=== PATIENT | male | born 1960 | race African-American/Black ===

== ENCOUNTER 2017-05-20 14:56 | Inpatient (IN) | payer OTHER ==
--- NOTE | 2017-05-20 17:51 | HP ---
COWS - Scale Resting Pulse: 0= [place] 80 or Below Sweatin= Chills/Flushing Restless Observation: 1= Difficult to Sit Still Pupil Size: 0= Normal to Room Light Bone or Joint Aches: 2= Severe Diffuse Aches Runny Nose/ Eye Tearin= Runny Nose/Eyes GI Upset > 30mins: 2= Nausea/Diarrhea Tremor Observation: 2= Slight Tremor Visible Yawning Observation: 0= None Anxiety or Irritability: 2=Irritable/Anxious Goose Flesh Skin: 3=Piloerection COWS Score: 15 Admission [facility] Chief Complaint: withdrawal sx Allergies/Adverse Reactions: Allergies Allergy/AdvReac Type Severity Reaction Status Date / Time No Known Allergies Allergy Verified 05/20/17 17:52 History of Present Illness: 56 years old female with long history of opioid cocaine dependence, has "liver disease" with ascites, treated at [facility] 05/[facility]/17 to 05/20/17 discharged with lasix 40 mg + spironolactone 25 mg + zpak, + prednison 40 mg x 5 days, has copd hepatitis c and positive ppd is admitted to detox Exam Limitations: No Limitations - Ebola screening Have you traveled outside of the country in the last 21 days: No Have you had contact with anyone from an Ebola affected area: No Have you been sick,other than usual withdrawal symptoms: No Do you have a fever: No - Review of Systems Constitutional: Loss of Appetite, Changes in sleep, Unintentional Wgt. Loss, Unexplained wgt Loss, Other (refuses ensure) EENT: reports: Blurred Vision (eye glasses), Dental Problems (no teeth "they took them out") Respiratory: reports: SOB with Exertion, Productive cough (yellowish) Cardiac: reports: No Symptoms Reported GI: reports: Nausea, Poor Appetite, Poor Fluid Intake, Abdominal cramping : reports: No Symptoms Reported Musculoskeletal: reports: Back Pain, Joint Pain, Muscle Pain, Neck Pain Integumentary: reports: Change in Color (both inner elbows) Neuro: reports: Tremors Endocrine: reports: No Symptoms Reported Hematology: reports: No Symptoms Reported Psychiatric: reports: Judgement Intact, Mood/Affect Appropiate, Orientated x3 Other Systems: Reviewed and Negative Patient History - Patient Medical History Hx Anemia: No Hx Asthma: Yes Hx Chronic Obstructive Pulmonary Disease (COPD): Yes Hx Cancer: No Hx Cardiac Disorders: No Hx Congestive Heart Failure: No Hx Hypertension: No Hx Hypercholesterolemia: No Hx Pacemaker: No HX Cerebrovascular Accident: No Hx Seizures: No Hx Dementia: No Hx Diabetes: No Hx Gastrointestinal Disorders: No Hx Liver Disease: Yes Hx Genitourinary Disorders: No Hx Sexually Transmitted Disorders: No Hx Renal Disease (ESRD): No Hx Thyroid Disease: No Hx Human Immunodeficiency Virus (HIV): No Hx Hepatitis C: Yes Hx Depression: No Hx Suicide Attempt: No Hx Bipolar Disorder: No Hx Schizophrenia: No - Patient Surgical History Past Surgical History: Yes Hx Neurologic Surgery: No Hx Cataract Extraction: No Hx Cardiac Surgery: No Hx Lung Surgery: No Hx Breast Surgery: No Hx Breast Biopsy: No Hx Abdominal Surgery: No Hx Appendectomy: Yes (12 years old) Hx Cholecystectomy: No Hx Genitourinary Surgery: No Hx Section: No Hx Orthopedic Surgery: No Hx Hysterectomy: No Anesthesia Reaction: No - PPD History Previous Implant?: Yes Documented Results: Positive w/o proof Implanted On Prior R Admission?: No PPD to be Administered?: No - Reproductive History Patient is a Female of Child Bearing Age (11 -55 yrs old): No Patient : No - Smoking Cessation Smoking history: Former smoker Have you smoked in the past 12 months: No Hx Chewing Tobacco Use: No Initiated information on smoking cessation: No - Substance & Tx. History Hx Alcohol Use: No Hx Substance Use: Yes Substance Use Type: Cocaine, Heroin Hx Substance Use Treatment: Yes (04/2017 [facility]) - Substances Abused Heroin Route: Injection Frequency: Daily Amount used: 10 bags Age of first use: 24 Date of Last Use: 05/19/17 Family Disease History - Family Disease History Family Disease History: Other: Father (/suicid), Mother (), Brother (), Sister () Admission Physical Exam BHS - Physical General Appearance: Yes: Appropriately Dressed, Mild Distress, Thin (refuses ensure), Tremorous, Irritable, Sweating, Anxious HEENTM: Yes: Hearing grossly Normal, Normal ENT Inspection, Normocephalic, Normal Voice, Other (eye glasses) Respiratory: Yes: Chest Non-Tender, Normal Breath Sounds, No Accessory Muscle Use, Wheezing, Hyperresonant, Inspiration Neck: Yes: Supple, Trachea in good position Breast: Yes: Breasts Symetrical Cardiology: Yes: Regular Rhythm, Regular Rate, S1, S2 Abdominal: Yes: Non Tender, Soft, Distended (ascites x 1 + year, liver disease related), Hepatomegaly Genitourinary: Yes: Within Normal Limits Back: Yes: Normal Inspection Musculoskeletal: Yes: full range of Motion, Gait Steady Extremities: Yes: Normal Inspection, Normal Range of Motion, Non-Tender, Tremors Neurological: Yes: Fully Oriented, Alert, Motor Strength 5/5, Normal Response, Depressed Affect Integumentary: Yes: Warm, Track Graf Lymphatic: Yes: Within Normal Limits - Diagnostic (1) Opioid dependence with withdrawal Current Visit: Yes Status: Acute (2) Cocaine dependence, uncomplicated Current Visit: Yes Status: Chronic (3) Liver disease Current Visit: Yes Status: Chronic (4) Ascites Current Visit: Yes Status: Chronic Qualifiers: Ascites type: other type Qualified Code(s): R18.8 - Other ascites (5) Hepatitis C carrier Current Visit: Yes Status: Chronic (6) Positive PPD, treated Current Visit: Yes Status: Resolved Comment: chest x ray pending Cleared for Admission [facility] - Detox or Rehab [facility] Level of Care: Medically Managed Detox Regimen/Protocol: Methadone [facility] Breath Alcohol Content Breath Alcohol Content: 0 Vital Signs - Vital Signs Vital Signs Refused: No Temperature: 97 F Temperature Source: Oral Pulse Rate: 68 Respiratory Rate: 20 Blood Pressure: 126/76 BP Location: Left Arm Blood Pressure Position: Sitting - Height Height: 5 ft 3 in - Weight Weight: 108 lb Weight Measurement Method: Standing Scale Body Mass Index (BMI): 19.1 - Bowel Function Bowel Movement: Yes Urine Drug Screen - Control Is Test Valid: Yes - Results Drug Screen Negative: No Urine Drug Screen Results: LIEN-Cocaine, OPI-Opiates, MET-Methamphetamine, OXY- Oxycodone
[2017-05-20] MEDS ORDERED: ACETAMINOPHEN 325 MG TABLET (FP) PO PRN ×2 (18:06→22:34)
[2017-05-20] MEDS ORDERED: diazePAM 5 MG TABLET PO PRN (18:06)
[2017-05-20] MEDS ORDERED: IBUPROFEN 400 MG TABLET (FP) PO PRN ×2 (18:06→22:34)
[2017-05-20] MEDS ORDERED: P-EPHED 60MG/TRIPROLIDI 2.5MG TABLET PO PRN ×2 (18:06→22:34)
[2017-05-20] MEDS ORDERED: LOPERAMIDE HCL 2 MG CAPSULE PO PRN ×2 (18:06→22:34)
[2017-05-20] MEDS ORDERED: MAG HYDROX/AL HYDROX/SIMETH 30 ML UNIT-DOSE CUP PO PRN ×2 (18:06→22:34)
[2017-05-20] MEDS ORDERED: METHADONE HCL 10 MG TABLET (FOR DETOX USE ONLY) PO ONE ×2 (18:06→23:00)
[2017-05-20] MEDS ORDERED: MENTHOL/PHENOL 1 EACH UD MM PRN ×2 (18:06→22:34)
[2017-05-20] MEDS ORDERED: guaiFENesin/D-METHORPHAN HB 10 ML UNIT-DOSE CUPS PO PRN ×2 (18:06→22:34)
[2017-05-20] MEDS ORDERED: diphenhydrAMINE HCL 50 MG CAPSULE PO PRN ×2 (18:06→22:34)
[2017-05-20] MEDS ORDERED: MAGNESIUM CITRATE 300 ML BOTTLE PO PRN ×2 (18:06→22:34)
[2017-05-20] MEDS ORDERED: MAGNESIUM HYDROX 2400MG/30ML ORAL SUSPENSION 30 ML CUP PO PRN ×2 (18:06→22:34)
[2017-05-20] MEDS ORDERED: AZITHROMYCIN 250 MG TABLET PO ONE (18:14)
[2017-05-20 21:54] VITALS: BMI 29.5
[2017-05-20] MEDS ORDERED: THIAMINE HCL 100 MG TABLET (FP) PO SCH (22:00)
--- NOTE | 2017-05-20 22:21 | HP ---
CIWA Score - CIWA Score Nausea/Vomitin Muscle Tremors: 4-Moderate,w/Arms Extend Anxiety: 4-Mod. Anxious/Guarded Agitation: 4-Moderately Restless Paroxysmal Sweats: 1-Minimal Palms Moist Orientation: 0-Oriented Tacttile Disturbances: 0-None Auditory Disturbances: 0-None Visual Disturbances: 0-None Headache: 0-None Present CIWA-Ar Total Score: 16 Admission ROS BHS - HPI Chief Complaint: C/O WITHDRAWAL SX'S. SEEKING DETOX TXMENT Allergies/Adverse Reactions: Allergies Allergy/AdvReac Type Severity Reaction Status Date / Time No Known Allergies Allergy Verified 05/20/17 17:52 History of Present Illness: 56 Y.O. MALE WITH BENZO DEPENDENCE ADMITTED FOR DETOX. LAST DETOX 2 MONTHS AGO. 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 REPORTS LONGEST CLEAN TIME 13 YEARS RELAPSING EARLY THIS YEAR. HE IS CURRENTLY ON MMTP 210MG AT [facility] TODAY. UTOX +LIEN BUT DENIES USE Exam Limitations: No Limitations - Ebola screening Have you traveled outside of the country in the last 21 days: No Have you had contact with anyone from an Ebola affected area: No Have you been sick,other than usual withdrawal symptoms: No Do you have a fever: No - Review of Systems Constitutional: Chills, Malaise, Night Sweats EENT: reports: No Symptoms Reported Respiratory: reports: No Symptoms reported Cardiac: reports: No Symptoms Reported GI: reports: Diarrhea, Poor Appetite, Abdominal cramping : reports: No Symptoms Reported Musculoskeletal: reports: No Symptoms Reported Integumentary: reports: No Symptoms Reported Neuro: reports: No Symptoms reported Endocrine: reports: Other (H/O DM) Hematology: reports: No Symptoms Reported Psychiatric: reports: Anxious Other Systems: Reviewed and Negative Patient History - Patient Medical History Hx Anemia: No Hx Asthma: No Hx Chronic Obstructive Pulmonary Disease (COPD): No Hx Cancer: No Hx Cardiac Disorders: No Hx Congestive Heart Failure: No Hx Hypertension: Yes (LISINOPRIL) Hx Hypercholesterolemia: No Hx Pacemaker: No HX Cerebrovascular Accident: No Hx Seizures: No Hx Dementia: No Hx Diabetes: Yes (METFORMIN) Hx Gastrointestinal Disorders: No Hx Liver Disease: No Hx Genitourinary Disorders: No Hx Sexually Transmitted Disorders: No Hx Renal Disease (ESRD): No Hx Thyroid Disease: No Hx Human Immunodeficiency Virus (HIV): No Hx Hepatitis C: Yes (NO TXMENT) Hx Depression: No Hx Suicide Attempt: No Hx Bipolar Disorder: No Hx Schizophrenia: No Other Medical History: DENIES - Patient Surgical History Past Surgical History: Yes Hx Neurologic Surgery: No Hx Cataract Extraction: No Hx Cardiac Surgery: No Hx Lung Surgery: No Hx Breast Surgery: No Hx Breast Biopsy: No Hx Abdominal Surgery: Yes (UMBILICAL HERNIA) Hx Appendectomy: No Hx Cholecystectomy: No Hx Genitourinary Surgery: No Hx Section: No Hx Orthopedic Surgery: No Hx Hysterectomy: No Anesthesia Reaction: No - PPD History Previous Implant?: Yes Documented Results: Negative w/o proof Implanted On Prior [facility] Admission?: No PPD to be Administered?: Yes - Reproductive History Patient : No - Smoking Cessation Smoking history: Current some day smoker Have you smoked in the past 12 months: Yes Aproximately how many cigarettes per day: 4 Cigars Per Day: 0 Hx Chewing Tobacco Use: No Initiated information on smoking cessation: Yes 'Breaking Loose' booklet given: 05/20/17 - Substance & Tx. History Hx Alcohol Use: No Hx Substance Use: Yes Substance Use Type: Cocaine, Tranquilizers (XANAX) - Substances Abused Heroin Route: Injection Frequency: Daily Amount used: 10 bags Age of first use: 24 Date of Last Use: 05/19/17 XANAX Route: Oral Frequency: Daily Amount used: 10MG Age of first use: 56 Date of Last Use: 05/19/17 Family Disease History - Family Disease History Family History: Denies Admission Physical Exam BHS - Vital Signs Vital Signs: Vital Signs - 24 hr 05/20/17 05/20/17 18:20 21:51 Temperature 97 F L 96.5 F L Pulse Rate 68 50 L Respiratory 20 20 Rate Blood Pressure 126/76 132/72 - Physical General Appearance: Yes: Appropriately Dressed, Tremorous HEENTM: Yes: EOMI, Normal ENT Inspection, Normocephalic, Normal Voice, TOÑA, Pharynx Normal Respiratory: Yes: Chest Non-Tender, Lungs Clear, Normal Breath Sounds, No Respiratory Distress, No Accessory Muscle Use Neck: Yes: No masses,lesions,Nodules, Supple, Trachea in good position Breast: Yes: Breast Exam Deferred Cardiology: Yes: Regular Rhythm, Regular Rate, S1, S2 Abdominal: Yes: Normal Bowel Sounds, Non Tender, Soft, Protuberent Genitourinary: Yes: Within Normal Limits Back: Yes: Normal Inspection Musculoskeletal: Yes: full range of Motion, Gait Steady Extremities: Yes: Normal Capillary Refill, Normal Range of Motion, Non-Tender, Tremors, Pedal Edema (3-4 +EDEMA PITTING) Neurological: Yes: software programmer II-XII NML intact, Fully Oriented, Alert, Motor Strength 5/5 Integumentary: Yes: Normal Color, Dry, Warm Lymphatic: Yes: Within Normal Limits - Diagnostic (1) Uncomplicated opioid dependence Current Visit: Yes Status: Chronic (2) Sedative, hypnotic or anxiolytic dependence with withdrawal, uncomplicated Current Visit: Yes Status: Chronic (3) Methadone maintenance therapy patient Current Visit: Yes Status: Chronic (4) Diabetes Current Visit: Yes Status: Chronic (5) HTN (hypertension) Current Visit: Yes Status: Chronic Qualifiers: Hypertension type: essential hypertension Qualified Code(s): I10 - Essential (primary) hypertension (6) Hep C w/o coma, chronic Current Visit: Yes Status: Chronic Cleared for Admission [facility] - Detox or Rehab [facility] Level of Care: Medically Managed Detox Regimen/Protocol: Librium [facility] Breath Alcohol Content Breath Alcohol Content: 0 Urine Drug Screen - Results Drug Screen Negative: No Urine Drug Screen Results: LIEN-Cocaine, BZO-Benzodiazepines, MTD-Methadone, TCA- Tricyclic Antidepress
[2017-05-20] MEDS ORDERED: NICOTINE POLACRILEX 2 MG GUM BC PRN (22:34)
[2017-05-20] MEDS ORDERED: chlordiazePOXIDE HCL 25 MG CAPSULE PO PRN (22:34)
[2017-05-20] MEDS ORDERED: hydrOXYzine PAMOATE 50 MG CAPSULE (FP) PO PRN (22:34)
[2017-05-21] MEDS: chlordiazePOXIDE HCL 25 MG CAPSULE PO SCH ×5 (00:28→22:31)
[2017-05-21 01:16] LABS: URINE APPEARANCE SLCLOUDY; URINE BILIRUBIN NEGATIVE (NEGATIVE); URINE BLOOD NEGATIVE (NEGATIVE); URINE COLOR AMBER; URINE GLUCOSE (UA) NEGATIVE (NEGATIVE); URINE KETONE TRACE (NEGATIVE); URINE LEUK ESTERASE NEGATIVE (NEGATIVE); URINE NITRITE NEGATIVE (NEGATIVE)
[2017-05-21 01:23] LABS: URINE PROTEIN 3+ (NEGATIVE)
[2017-05-21 01:28] LABS: URINE HYALINE CAST 21 /lpf; URINE MUCUS MODERATE; URINE RBC 2 /hpf (0-3); URINE WBC 9 /hpf (3-5)
[2017-05-21] MEDS: metFORMIN HCL 500 MG TABLET (FP) PO SCH ×2 (07:44→17:27)
[2017-05-21] MEDS ORDERED: METHADONE HCL 10 MG TABLET PO ONE (09:27)
[2017-05-21] MEDS ORDERED: METHADONE 200 MG, METHADONE 10 MG PO ONE (09:40)
[2017-05-21] MEDS ORDERED: predniSONE 20 MG TABLET (UD) PO SCH (10:00)
[2017-05-21] MEDS ORDERED: PRENATAL VITAMINS W/ FOLIC ACID TABLET (FP) PO SCH (10:00)
[2017-05-21] MEDS ORDERED: AZITHROMYCIN 250 MG TABLET PO SCH (10:00)
[2017-05-21] MEDS ORDERED: METHADONE HCL 10 MG TABLET (FOR DETOX USE ONLY) PO ONE (10:00)
[2017-05-21] MEDS ORDERED: SPIRONOLACTONE 25 MG TABLET (FP) PO SCH (10:00)
[2017-05-21] MEDS ORDERED: FUROSEMIDE PO SCH (10:00)
[2017-05-21 10:04] LABS: MCH 29.7 pg (25.7-33.7); MCHC 33.7 g/dl (32.0-35.9); MEAN CELL VOLUME 88.2 fl (80-96); MEAN PLT VOLUME 7.9 fl (7.5-11.1); PLATELET COUNT 181 K/MM3 (134-434); RDW 13.6 % (11.9-15.9); WHITE BLOOD COUNT 4.4 K/mm3 (4.0-10.0)
--- NOTE | 2017-05-21 10:07 | CONSULT ---
[facility] Psychiatric Consult - Data Date of interview: 05/21/17 Admission source: [facility] Identifying data: Mr Parson is a 57 years old Black male, father of a 40 years old son, unemployed with no source of income, homeless seeking detox treatment for heroin and xanax Substance Abuse History: Reports history of heroin and bezodiazepine abuse. He started using heroin at age 24, consumes 10 bags daily. Last used on 05/19/17. He started using xanax at age 56, consumes 10 mg daily. Last used on 05/19/17 Medical History: Significant for HTN, type 2 DM, Hep C, and history of surgery for umbilical hernia repair. Smokes 4 cigarettes daily Psychiatric History: Denies history of previous psychiatric treatment Additional Comment: Reports history of multiple arrests including 5 felony convictions. Denies being on parole/probation at present Mental Status Exam - Mental Status Exam Alert and Oriented to: Time, Place, Person Cognitive Function: Fair Patient Appearance: Unkempt Mood: Hopeful, Euthymic Affect: Appropriate Patient Behavior: Sedated Speech Pattern: Clear Voice Loudness: Normal Thought Process: Intact Thought Disorder: Not Present Hallucinations: Denies Suicidal Ideation: Denies Homicidal Ideation: Denies Insight/Judgement: Poor Sleep: Poorly Appetite: Good Muscle strength/Tone: Normal Gait/Station: Normal Psychiatric Findings - Problem List ([place] 1, 2,3) (1) Opioid dependence with withdrawal Current Visit: No Status: Acute (2) Sedative, hypnotic or anxiolytic dependence with withdrawal, uncomplicated Current Visit: Yes Status: Chronic (3) Opioid dependence on agonist therapy Current Visit: Yes Status: Acute (4) Nicotine dependence Current Visit: Yes Status: Acute (5) Substance-induced sleep disorder Current Visit: Yes Status: Acute (6) Diabetes Current Visit: Yes Status: Chronic (7) HTN (hypertension) Current Visit: Yes Status: Chronic Qualifiers: Hypertension type: essential hypertension Qualified Code(s): I10 - Essential (primary) hypertension (8) Hep C w/o coma, chronic Current Visit: Yes Status: Chronic - Initial Treatment Plan Initial Treatment Plan: 1) Start Ambien 10 mg po HS prn for insomnia. 2) Continue inpatient detoxification
[2017-05-21 10:22] LABS: ANION GAP 4 (8-16); CO2 32 mmol/L (21-32)
[2017-05-21] MEDS ORDERED: METHADONE HCL 10 MG TABLET ONE (10:22)
[2017-05-21] MEDS ORDERED: METHADONE HCL 40 MG DISPERSABLE TABLET ONE (10:23)
[2017-05-21] MEDS: ASPIRIN COATED 81 MG TABLET.EC PO SCH (10:28)
[2017-05-21] MEDS: LISINOPRIL 20 MG TABLET (FP) PO SCH (10:28)
[2017-05-21] MEDS: NICOTINE 14 MG/24 HOURS TOPICAL PATCH TD SCH (10:29)
[2017-05-21] MEDS: PRENATAL VITAMINS W/ FOLIC ACID TABLET (FP) PO SCH (10:29)
[2017-05-21 10:30] LABS: ALBUMIN 2.5 g/dl (3.4-5.0); ALK PHOS 86 U/L (45-117); BILIRUBIN,TOTAL 0.4 mg/dL (0.2-1.0); CALCIUM 8.5 mg/dL (8.5-10.1); CREATININE 1.4 mg/dL (0.7-1.3); GLUCOSE,RANDOM 120 mg/dL (74-106); SGOT/AST 37 U/L (15-37); SGPT/ALT 28 U/L (12-78); TOT PROT 6.2 g/dl (6.4-8.2)
--- NOTE | 2017-05-21 12:14 | EKG ---
Test Reason : Blood Pressure : / mmHG Vent. Rate : 043 BPM Atrial Rate : 043 BPM P-R Int : 176 ms QRS Dur : 100 ms QT Int : 498 ms P-R-T Axes : 071 -09 022 degrees QTc Int : 420 ms MARKED SINUS BRADYCARDIA ABNORMAL ECG NO PREVIOUS ECGS AVAILABLE Confirmed by BEBO PAYAN MD ([id number]) on 05/21/2017 12:14:16 PM Referred By: Confirmed By:BEBO PAYAN MD
[2017-05-21] MEDS: THIAMINE HCL 100 MG TABLET (FP) PO SCH (22:31)
[2017-05-22] MEDS ORDERED: METHADONE HCL 10 MG TABLET ONE ×2 (05:30→05:59)
[2017-05-22] MEDS ORDERED: METHADONE HCL 40 MG DISPERSABLE TABLET ONE ×2 (05:31→05:59)
[2017-05-22] MEDS: chlordiazePOXIDE HCL 25 MG CAPSULE PO SCH ×3 (05:50→17:22)
[2017-05-22] MEDS: METHADONE 200 MG, METHADONE 10 MG PO SCH (05:50)
[2017-05-22] MEDS ORDERED: METHADONE HCL 10 MG TABLET PO SCH (06:00)
[2017-05-22] MEDS: metFORMIN HCL 500 MG TABLET (FP) PO SCH ×2 (07:49→17:22)
[2017-05-22] MEDS ORDERED: METHADONE HCL 5 MG TABLET (FOR DETOX USE ONLY) PO ONE (10:00)
[2017-05-22] MEDS: NICOTINE 14 MG/24 HOURS TOPICAL PATCH TD SCH (10:49)
[2017-05-22] MEDS: PRENATAL VITAMINS W/ FOLIC ACID TABLET (FP) PO SCH (10:49)
[2017-05-22] MEDS: LISINOPRIL 20 MG TABLET (FP) PO SCH ×2 (10:49→18:34)
[2017-05-22] MEDS: ASPIRIN COATED 81 MG TABLET.EC PO SCH (10:49)
--- NOTE | 2017-05-22 13:48 | PN ---
BHS COWS - Scale Resting Pulse: 0= [place] 80 or Below Sweatin= Chills/Flushing Restless Observation: 3= Extraneous Movement Pupil Size: 2= Moderately Dilated Bone or Joint Aches: 4=Acute Joint/Muscle Pain Runny Nose/ Eye Tearin= Nasal Congestion GI Upset > 30mins: 1= Stomach Cramp Tremor Observation of Outstretched Hands: 1= Tremor [place], Not Seen Yawning Observation: 1= 1-2x During Session Anxiety or Irritability: 2=Irritable/Anxious Goose Flesh Skin: 0=Smooth Skin COWS Score: 16 S Progress Note (SOAP) Subjective: ANXIETY, SWEATS, FATIGUE. Objective: 05/22/17 13:45 Vital Signs Temperature 96.0 F L 05/22/17 09:46 Pulse Rate 46 L 05/22/17 09:46 Respiratory Rate 20 05/22/17 09:46 Blood Pressure 144/75 05/22/17 09:46 O2 Sat by Pulse Oximetry (%) Laboratory Last Values WBC 4.4 K/mm3 (4.0-10.0) 05/21/17 07:00 RBC 3.78 M/mm3 (4.00-5.60) L 05/21/17 07:00 Hgb 11.2 GM/dL (11.7-16.9) L 05/21/17 07:00 Hct 33.3 % (35.4-49) L 05/21/17 07:00 MCV 88.2 fl (80-96) 05/21/17 07:00 MCH 29.7 pg (25.7-33.7) 05/21/17 07:00 MCHC 33.7 g/dl (32.0-35.9) 05/21/17 07:00 RDW 13.6 % (11.9-15.9) 05/21/17 07:00 Plt Count 181 K/MM3 (134-434) 05/21/17 07:00 MPV 7.9 fl (7.5-11.1) 05/21/17 07:00 Sodium 141 mmol/L (136-145) 05/21/17 07:00 Potassium 3.7 mmol/L (3.5-5.1) 05/21/17 07:00 Chloride 105 mmol/L (98-107) 05/21/17 07:00 Carbon Dioxide 32 mmol/L (21-32) 05/21/17 07:00 Anion Gap 4 (8-16) L 05/21/17 07:00 BUN 23 mg/dL (7-18) H 05/21/17 07:00 Creatinine 1.4 mg/dL (0.7-1.3) H 05/21/17 07:00 Creat Clearance w eGFR 52.24 (>60) 05/21/17 07:00 POC Glucometer 121 UNITS (()) 05/22/17 05:52 Random Glucose 120 mg/dL (74-106) H 05/21/17 07:00 Calcium 8.5 mg/dL (8.5-10.1) 05/21/17 07:00 Total Bilirubin 0.4 mg/dL (0.2-1.0) 05/21/17 07:00 AST 37 U/L (15-37) 05/21/17 07:00 ALT 28 U/L (12-78) 05/21/17 07:00 Alkaline Phosphatase 86 U/L (45-117) 05/21/17 07:00 Total Protein 6.2 g/dl (6.4-8.2) L 05/21/17 07:00 Albumin 2.5 g/dl (3.4-5.0) L 05/21/17 07:00 Urine Color [place] 05/20/17 23:33 Urine Appearance Slcloudy 05/20/17 23:33 Urine pH 5.0 (5.0-8.0) 05/20/17 23:33 Ur Specific [place] >= 1.030 (1.005-1.025) H 05/20/17 23:33 Urine Protein 3+ (NEGATIVE) H 05/20/17 23:33 Urine Glucose (UA) Negative (NEGATIVE) 05/20/17 23:33 Urine Ketones Trace (NEGATIVE) H 05/20/17 23:33 Urine Blood Negative (NEGATIVE) 05/20/17 23:33 Urine Nitrite Negative (NEGATIVE) 05/20/17 23:33 Urine Bilirubin Negative (NEGATIVE) 05/20/17 23:33 Urine Urobilinogen 2.0 mg/dL (0.2-1.0) 05/20/17 23:33 Urine RBC 2 /hpf (0-3) 05/20/17 23:33 Urine WBC 9 /hpf (3-5) 05/20/17 23:33 Ur Epithelial Cells Rare /hpf (FEW) 05/20/17 23:33 Hyaline Casts 21 /lpf 05/20/17 23:33 Urine Mucus Moderate 05/20/17 23:33 RPR Titer Nonreactive (NONREACTIVE) 05/21/17 07:00 Assessment: 05/22/17 13:46 WITHDRAWAL SX Plan: CONTINUE DETOX
[2017-05-22] MEDS: chlordiazePOXIDE 5 MG CAPSULE PO SCH (22:40)
[2017-05-22] MEDS: THIAMINE HCL 100 MG TABLET (FP) PO SCH (22:40)
[2017-05-23] MEDS ORDERED: METHADONE HCL 10 MG TABLET ONE (04:16)
[2017-05-23] MEDS ORDERED: METHADONE HCL 40 MG DISPERSABLE TABLET ONE (04:16)
[2017-05-23] MEDS: chlordiazePOXIDE 5 MG CAPSULE PO SCH ×3 (05:44→17:13)
[2017-05-23] MEDS: METHADONE 200 MG, METHADONE 10 MG PO SCH (05:45)
[2017-05-23] MEDS: metFORMIN HCL 500 MG TABLET (FP) PO SCH ×2 (07:45→17:13)
[2017-05-23] MEDS ORDERED: METHADONE HCL 5 MG TABLET (FOR DETOX USE ONLY) PO ONE (10:00)
[2017-05-23] MEDS ORDERED: metFORMIN HCL 500 MG TABLET (FP) PO ONE (10:26)
[2017-05-23] MEDS: LISINOPRIL 20 MG TABLET (FP) PO SCH (10:29)
[2017-05-23] MEDS: ASPIRIN COATED 81 MG TABLET.EC PO SCH (10:29)
[2017-05-23] MEDS: PRENATAL VITAMINS W/ FOLIC ACID TABLET (FP) PO SCH (10:29)
[2017-05-23] MEDS: NICOTINE 14 MG/24 HOURS TOPICAL PATCH TD SCH (10:30)
--- NOTE | 2017-05-23 12:31 | PN ---
[facility] CIWA - CIWA Score Nausea/Vomitin-Mild Nausea/No Vomiting Muscle Tremors: 4-Moderate,w/Arms Extend Anxiety: 4-Mod. Anxious/Guarded Agitation: 3 Paroxysmal Sweats: 2 Orientation: 0-Oriented Tacttile Disturbances: 0-None Auditory Disturbances: 2-Mild Harshness/Frighten Visual Disturbances: 2-Mild Sensitivity Headache: 0-None Present CIWA-Ar Total Score: 18 [facility] Progress Note (SOAP) Subjective: Tremors, Fatigue, Sweating. Objective: PT. A & O X 3, OBSERVED AMBULATING ON UNIT. NO ACUTE DISTRESS. PT. DENIES CHEST PAIN. 05/23/17 12:29 Vital Signs Temperature 97.4 F L 05/23/17 09:50 Pulse Rate 45 L 05/23/17 09:50 Respiratory Rate 20 05/23/17 09:50 Blood Pressure 142/67 05/23/17 09:50 O2 Sat by Pulse Oximetry (%) Laboratory Tests 05/20/17 05/21/17 05/21/17 23:33 00:54 06:11 WBC RBC Hgb Hct MCV MCH MCHC RDW Plt Count MPV Sodium Potassium Chloride Carbon Dioxide Anion Gap BUN Creatinine Creat Clearance w eGFR POC Glucometer 78 124 Random Glucose Calcium Total Bilirubin AST ALT Alkaline Phosphatase Total Protein Albumin Urine Color [place] Urine Appearance Slcloudy Urine pH 5.0 Ur Specific [place] >= 1.030 H Urine Protein 3+ H Urine Glucose (UA) Negative Urine Ketones Trace H Urine Blood Negative Urine Nitrite Negative Urine Bilirubin Negative Urine Urobilinogen 2.0 Urine RBC 2 Urine WBC 9 Ur Epithelial Cells Rare Hyaline Casts 21 Urine Mucus Moderate RPR Titer 05/21/17 05/21/17 05/21/17 07:00 07:00 07:00 WBC 4.4 RBC 3.78 L Hgb 11.2 L Hct 33.3 L MCV 88.2 MCH 29.7 MCHC 33.7 RDW 13.6 Plt Count 181 MPV 7.9 Sodium 141 Potassium 3.7 Chloride 105 Carbon Dioxide 32 Anion Gap 4 L BUN 23 H Creatinine 1.4 H Creat Clearance w eGFR 52.24 POC Glucometer Random Glucose 120 H Calcium 8.5 Total Bilirubin 0.4 AST 37 ALT 28 Alkaline Phosphatase 86 Total Protein 6.2 L Albumin 2.5 L Urine Color Urine Appearance Urine pH Ur Specific [place] Urine Protein Urine Glucose (UA) Urine Ketones Urine Blood Urine Nitrite Urine Bilirubin Urine Urobilinogen Urine RBC Urine WBC Ur Epithelial Cells Hyaline Casts Urine Mucus RPR Titer Nonreactive 05/21/17 05/22/17 05/22/17 16:19 05:52 16:08 WBC RBC Hgb Hct MCV MCH MCHC RDW Plt Count MPV Sodium Potassium Chloride Carbon Dioxide Anion Gap BUN Creatinine Creat Clearance w eGFR POC Glucometer 89 121 72 Random Glucose Calcium Total Bilirubin AST ALT Alkaline Phosphatase Total Protein Albumin Urine Color Urine Appearance Urine pH Ur Specific [place] Urine Protein Urine Glucose (UA) Urine Ketones Urine Blood Urine Nitrite Urine Bilirubin Urine Urobilinogen Urine RBC Urine WBC Ur Epithelial Cells Hyaline Casts Urine Mucus RPR Titer 05/23/17 05:45 WBC RBC Hgb Hct MCV MCH MCHC RDW Plt Count MPV Sodium Potassium Chloride Carbon Dioxide Anion Gap BUN Creatinine Creat Clearance w eGFR POC Glucometer 64 Random Glucose Calcium Total Bilirubin AST ALT Alkaline Phosphatase Total Protein Albumin Urine Color Urine Appearance Urine pH Ur Specific [place] Urine Protein Urine Glucose (UA) Urine Ketones Urine Blood Urine Nitrite Urine Bilirubin Urine Urobilinogen Urine RBC Urine WBC Ur Epithelial Cells Hyaline Casts Urine Mucus RPR Titer LABS NOTED. Assessment: 05/23/17 12:29 WITHDRAWAL SYMPTOMS. Plan: CONTINUE DETOX. FEOSOL, 325 MG PO BIDWM. REPEAT UA FOR ADMISSION ABNORMALITIES. D/C MAGNESIUM-CONTAINING MEDS. INCREASE DAILY PO FLUID INTAKE.
[2017-05-23 17:01] LABS: URINE APPEARANCE CLEAR; URINE BILIRUBIN NEGATIVE (NEGATIVE); URINE BLOOD NEGATIVE (NEGATIVE); URINE COLOR LT. YELLOW; URINE GLUCOSE (UA) NEGATIVE (NEGATIVE); URINE KETONE NEGATIVE (NEGATIVE); URINE LEUK ESTERASE NEGATIVE (NEGATIVE); URINE NITRITE NEGATIVE (NEGATIVE); URINE UROBILINOGEN 0.2 mg/dL (0.2-1.0)
[2017-05-23 17:18] LABS: URINE PROTEIN 2+ (NEGATIVE)
[2017-05-23] MEDS ORDERED: FERROUS SO4 325 MG TABLET (FP) PO SCH (17:30)
[2017-05-23 18:08] LABS: URINE MUCUS RARE; URINE RBC 1 /hpf (0-3); URINE WBC 2 /hpf (3-5)
[2017-05-23] MEDS: THIAMINE HCL 100 MG TABLET (FP) PO SCH (22:42)
[2017-05-23] MEDS: chlordiazePOXIDE HCL 10 MG CAPSULE PO SCH (22:42)
[2017-05-24] MEDS ORDERED: METHADONE HCL 10 MG TABLET ONE (04:42)
[2017-05-24] MEDS ORDERED: METHADONE HCL 40 MG DISPERSABLE TABLET ONE (04:43)
[2017-05-24] MEDS: METHADONE 200 MG, METHADONE 10 MG PO SCH (05:59)
[2017-05-24 06:52] VITALS: BP 146/66; PULSE 86; TEMP 98.3
[2017-05-24] MEDS: metFORMIN HCL 500 MG TABLET (FP) PO SCH (07:53)
[2017-05-24] MEDS: chlordiazePOXIDE HCL 10 MG CAPSULE PO SCH (07:54)
[2017-05-24] MEDS ORDERED: METHADONE HCL 10 MG TABLET (FOR DETOX USE ONLY) PO ONE (10:00)
--- NOTE | 2017-05-24 18:27 | DS ---
[facility] Detox Discharge Summary Admission Date: 05/20/17 Discharge Date: 05/24/17 - History Present History: Opioid Dependence, Sedative Dependence, MMTP Additional Comments: PATIENT ELECTING TO GO HOME. PATIENT ADVISED TO CONSIDER LOCAL 12-STEP / NA OUTPATIENT SUPPORT GROUPS FOR AFTERCARE. PATIENT WAS DISCHARGED FROM DETOX UNIT IN STABLE MEDICAL CONDITION. Pertinent Past History: Hep C, DM, HTN, Nicotine Dependence. - Physical Exam Results Vital Signs: Vital Signs Temperature 98.3 F 05/24/17 06:51 Pulse Rate 86 05/24/17 06:51 Respiratory Rate 18 05/24/17 06:51 Blood Pressure 146/66 05/24/17 06:51 O2 Sat by Pulse Oximetry (%) Pertinent Admission Physical Exam Findings: WITHDRAWAL SYMPTOMS. Laboratory Tests 05/20/17 05/21/17 05/21/17 23:33 00:54 06:11 WBC RBC Hgb Hct MCV MCH MCHC RDW Plt Count MPV Sodium Potassium Chloride Carbon Dioxide Anion Gap BUN Creatinine Creat Clearance w eGFR POC Glucometer 78 124 Random Glucose Calcium Total Bilirubin AST ALT Alkaline Phosphatase Total Protein Albumin Urine Color [place] Urine Appearance Slcloudy Urine pH 5.0 Ur Specific [place] >= 1.030 H Urine Protein 3+ H Urine Glucose (UA) Negative Urine Ketones Trace H Urine Blood Negative Urine Nitrite Negative Urine Bilirubin Negative Urine Urobilinogen 2.0 Urine RBC 2 Urine WBC 9 Ur Epithelial Cells Rare Hyaline Casts 21 Urine Mucus Moderate RPR Titer 05/21/17 05/21/17 05/21/17 07:00 07:00 07:00 WBC 4.4 RBC 3.78 L Hgb 11.2 L Hct 33.3 L MCV 88.2 MCH 29.7 MCHC 33.7 RDW 13.6 Plt Count 181 MPV 7.9 Sodium 141 Potassium 3.7 Chloride 105 Carbon Dioxide 32 Anion Gap 4 L BUN 23 H Creatinine 1.4 H Creat Clearance w eGFR 52.24 POC Glucometer Random Glucose 120 H Calcium 8.5 Total Bilirubin 0.4 AST 37 ALT 28 Alkaline Phosphatase 86 Total Protein 6.2 L Albumin 2.5 L Urine Color Urine Appearance Urine pH Ur Specific [place] Urine Protein Urine Glucose (UA) Urine Ketones Urine Blood Urine Nitrite Urine Bilirubin Urine Urobilinogen Urine RBC Urine WBC Ur Epithelial Cells Hyaline Casts Urine Mucus RPR Titer Nonreactive 05/21/17 05/22/17 05/22/17 16:19 05:52 16:08 WBC RBC Hgb Hct MCV MCH MCHC RDW Plt Count MPV Sodium Potassium Chloride Carbon Dioxide Anion Gap BUN Creatinine Creat Clearance w eGFR POC Glucometer 89 121 72 Random Glucose Calcium Total Bilirubin AST ALT Alkaline Phosphatase Total Protein Albumin Urine Color Urine Appearance Urine pH Ur Specific [place] Urine Protein Urine Glucose (UA) Urine Ketones Urine Blood Urine Nitrite Urine Bilirubin Urine Urobilinogen Urine RBC Urine WBC Ur Epithelial Cells Hyaline Casts Urine Mucus RPR Titer 05/23/17 05/23/17 05/23/17 05:45 15:00 16:09 WBC RBC Hgb Hct MCV MCH MCHC RDW Plt Count MPV Sodium Potassium Chloride Carbon Dioxide Anion Gap BUN Creatinine Creat Clearance w eGFR POC Glucometer 64 104 Random Glucose Calcium Total Bilirubin AST ALT Alkaline Phosphatase Total Protein Albumin Urine Color Lt. yellow Urine Appearance Clear Urine pH 6.0 Ur Specific [place] 1.025 Urine Protein 2+ H Urine Glucose (UA) Negative Urine Ketones Negative Urine Blood Negative Urine Nitrite Negative Urine Bilirubin Negative Urine Urobilinogen 0.2 Urine RBC 1 Urine WBC 2 Ur Epithelial Cells Rare Hyaline Casts Urine Mucus Rare RPR Titer 05/24/17 05:58 WBC RBC Hgb Hct MCV MCH MCHC RDW Plt Count MPV Sodium Potassium Chloride Carbon Dioxide Anion Gap BUN Creatinine Creat Clearance w eGFR POC Glucometer 71 Random Glucose Calcium Total Bilirubin AST ALT Alkaline Phosphatase Total Protein Albumin Urine Color Urine Appearance Urine pH Ur Specific [place] Urine Protein Urine Glucose (UA) Urine Ketones Urine Blood Urine Nitrite Urine Bilirubin Urine Urobilinogen Urine RBC Urine WBC Ur Epithelial Cells Hyaline Casts Urine Mucus RPR Titer LABS NOTED. - Treatment Hospital Course: Detox Protocol Followed, Detoxed Safely, Responded well, Discharged Condition Good Patient has Accepted a Rehab Referral to: NO. PT ADVISED TO CONSIDER LOCAL 12- STEP/NA SUPPORT GROUPS FOR AFTERCARE. - Medication Discharge Medications: Ambulatory Orders Aspirin [ASA -] 81 mg PO DAILY 05/20/17 Lisinopril [Prinivil -] 40 mg PO DAILY 05/20/17 Metformin HCl [Glucophage -] 1,000 mg PO BID 05/20/17 - Diagnosis (1) Opioid dependence on agonist therapy Status: Chronic (2) Sedative, hypnotic or anxiolytic dependence with withdrawal, uncomplicated Status: Acute (3) Substance-induced sleep disorder Status: Acute (4) Diabetes Status: Chronic Qualifiers: Diabetes mellitus type: type 2 Diabetes mellitus complication status: without complication Diabetes mellitus long term care social worker insulin use: unspecified fpc insulin use status Qualified Code(s): E11.9 - Type 2 diabetes mellitus without complications (5) HTN (hypertension) Status: Chronic Qualifiers: Hypertension type: essential hypertension Qualified Code(s): I10 - Essential (primary) hypertension (6) Hep C w/o coma, chronic Status: Chronic (7) Methadone maintenance therapy patient Status: Chronic (8) Nicotine dependence Status: Chronic Qualifiers: Nicotine product type: cigarettes Substance use status: in withdrawal Qualified Code(s): F17.213 - Nicotine dependence, cigarettes, with withdrawal - AMA Did Patient Leave Against Medical Advice: No
[2017-05-25] MEDS ORDERED: METHADONE HCL 5 MG TABLET (FOR DETOX USE ONLY) PO ONE (06:00)
== END 2017-05-24 07:55 | disposition home or self-care (01) | DRG 773 ==
LOC: YASAS 14:56 → Y3N 23:01
PROVIDERS: ADMIT Internal Medicine; ATTEND Internal Medicine
PROC: HZ2ZZZZ Detoxification Services for Substance Abuse Treatment (ICD-10-PCS; principal; 2017-05-20)
DX: F11.23 Opioid dependence with withdrawal (principal); F13.230 Sedative, hypnotic or anxiolytic dependence with withdrawal, uncomplicated; F17.213 Nicotine dependence, cigarettes, with withdrawal; F19.282 Other psychoactive substance dependence with psychoactive substance-induced sleep disorder; I10 Essential (primary) hypertension; E11.9 Type 2 diabetes mellitus without complications; Z79.4 Long term (current) use of insulin; B18.2 Chronic viral hepatitis C; R18.8 Other ascites; R76.11 Nonspecific reaction to tuberculin skin test without active tuberculosis; K76.9 Liver disease, unspecified
CPT/HCPCS: 36415; 80053; 81003; 81015; 85027; 86593; 93005; 93010

== ENCOUNTER 2024-03-06 16:22 | Inpatient (IN) | payer OTHER ==
[2024-03-06 17:49] VITALS: BMI 32.3
[2024-03-06] MEDS ORDERED: DICYCLOMINE HCL 10 MG CAPSULE PO PRN (22:40)
[2024-03-06] MEDS ORDERED: LOPERAMIDE HCL 2 MG CAPSULE PO PRN (22:40)
[2024-03-06] MEDS ORDERED: guaiFENesin 600 MG TABLET.ER (FP) PO PRN (22:40)
[2024-03-06] MEDS ORDERED: IBUPROFEN 600 MG TABLET (FP) PO PRN (22:40)
[2024-03-06] MEDS ORDERED: NICOTINE POLACRILEX 4 MG LOZENGE BC PRN (22:40)
[2024-03-06] MEDS ORDERED: ONDANSETRON *ODT* 4 MG TABLET SL PRN (22:40)
[2024-03-06] MEDS ORDERED: MAGNESIUM HYDROX 2400MG/30ML ORAL SUSPENSION 30 ML CUP PO PRN (22:40)
[2024-03-06] MEDS ORDERED: BISMUTH SUBSALICYLATE 524 MG/30 ML PO PRN (22:40)
[2024-03-06] MEDS ORDERED: MAG HYDROX/AL HYDROX/SIMETH 30 ML UNIT-DOSE CUP PO PRN (22:40)
[2024-03-06] MEDS ORDERED: IBUPROFEN 400 MG TABLET (FP) PO PRN (22:40)
[2024-03-06] MEDS ORDERED: NALOXONE HCL 0.4 MG/ML VIAL IM PRN (22:40)
[2024-03-06] MEDS ORDERED: NALOXONE (NARCAN) HCL 4 MG/0.1 ML SPRAY NS PRN (22:40)
[2024-03-06] MEDS ORDERED: POLYETHYLENE GLYCOL (HEALTHYLAX) 3350 17 GM PACKET PO PRN (22:40)
[2024-03-06] MEDS ORDERED: NICOTINE POLACRILEX 4 MG GUM BUC PRN (22:40)
[2024-03-06] MEDS ORDERED: ACETAMINOPHEN 325 MG TABLET (FP) PO PRN (22:40)
[2024-03-06] MEDS ORDERED: BENZONATATE 200 MG CAPSULE PO PRN (22:40)
[2024-03-06] MEDS ORDERED: BENZOCAINE/MENTHOL (CHLORASEPTIC ) LOZENGE MM PRN (22:40)
[2024-03-07] MEDS: hydrOXYzine PAMOATE 25 MG CAPSULE (FP) PO PRN (02:47)
[2024-03-07] MEDS ORDERED: INSULIN (NOVOLOG) ASPART 100 UNITS/ML 10ML VIAL ONE ×2 (05:09→05:10)
[2024-03-07] MEDS: METHOCARBAMOL 500 MG TABLET PO PRN (05:51)
[2024-03-07] MEDS: INSULIN ASPART SLIDING SCALE (NOVOLOG) 1 VIAL SQ SCH (06:02)
[2024-03-07] MEDS: PRENATAL VITAMINS W/ FOLIC ACID TABLET (FP) PO SCH (10:55)
[2024-03-07] MEDS: metFORMIN HCL 500 MG TABLET (FP) PO SCH (10:57)
[2024-03-07] MEDS: LISINOPRIL 20 MG TABLET PO SCH (10:57)
[2024-03-07] MEDS: diazePAM 5 MG TABLET PO SCH (10:58)
[2024-03-07] MEDS: levETIRAcetam 500 MG TABLET (FP) PO SCH (10:58)
[2024-03-07] MEDS: methaDONE HCL 10 MG TABLET PO ONE (13:49)
[2024-03-07] MEDS: diazePAM 5 MG TABLET PO PRN (21:23)
[2024-03-07] MEDS: MELATONIN 5 MG TABLETS PO SCH (21:25)
[2024-03-07] MEDS: THIAMINE 100 MG TABLET PO SCH (21:25)
[2024-03-08] MEDS: diazePAM 5 MG TABLET PO SCH (05:44)
[2024-03-08] MEDS ORDERED: methaDONE HCL 10 MG TABLET PO ONE (08:31)
[2024-03-09] MEDS: diazePAM 5 MG TABLET PO SCH (05:43)
[2024-03-09] MEDS ORDERED: methaDONE HCL 10 MG TABLET PO SCH (06:00)
[2024-03-09] MEDS: ASPIRIN 81 MG CHEWABLE TABLETS PO SCH (21:51)
[2024-03-09] MEDS: amLODIPine BESYLATE 5 MG TABLET (FP) PO ONE (21:51)
[2024-03-09 23:03] VITALS: PULSE 60
[2024-03-10] MEDS: diazePAM 5 MG TABLET PO ONE (06:22)
[2024-03-10 06:28] VITALS: RESP 16
[2024-03-10] MEDS: metFORMIN HCL 500 MG TABLET (FP) PO SCH (08:41)
[2024-03-10 09:08] VITALS: BP 127/79; TEMP 98
[2024-03-10] MEDS: amLODIPine BESYLATE 10 MG TABLET (FP) PO SCH (10:03)
== END 2024-03-10 10:38 | disposition home or self-care (01) | DRG 773 ==
LOC: YASAS 16:22 → SUATTDRO 16:22 → Y6N 03-07 02:10
PROVIDERS: ADMIT Psychiatry & Neurology Pain Medicine; ATTEND Psychiatry & Neurology Pain Medicine
PROC: HZ2ZZZZ Detoxification Services for Substance Abuse Treatment (ICD-10-PCS; principal; 2024-03-07)
DX: F10.230 Alcohol dependence with withdrawal, uncomplicated (principal); F13.230 Sedative, hypnotic or anxiolytic dependence with withdrawal, uncomplicated; F11.20 Opioid dependence, uncomplicated; F14.20 Cocaine dependence, uncomplicated; F19.282 Other psychoactive substance dependence with psychoactive substance-induced sleep disorder; I10 Essential (primary) hypertension; E11.9 Type 2 diabetes mellitus without complications; Z79.84 Long term (current) use of oral hypoglycemic drugs; B18.2 Chronic viral hepatitis C; Z87.891 Personal history of nicotine dependence
CPT/HCPCS: 80305; 80307; 82962; 93005; 93010